=== PATIENT | male | born 1955 | race Caucasian/White ===

== ENCOUNTER 2024-10-23 09:02 | Outpatient (REF) | payer OTHER, MEDICARE, SELFPAY | END 2024-10-23 09:03 | disposition home or self-care (01) | LOC: HO.SH 09:02 | PROVIDERS: PCP Internal Medicine; Visit Provider Internal Medicine | DX: Z01.118 Encounter for examination of ears and hearing with other abnormal findings (principal); H90.3 Sensorineural hearing loss, bilateral | CPT/HCPCS: 92557 ==

== ENCOUNTER 2025-01-15 10:03 | Outpatient (REF) | payer SELFPAY ==
--- NOTE | 2025-01-15 10:59 | MHC.AU.MED ---
Medical Clearance for Hearing Instrumentation Date: 01/15/25 Patient Name: Fahad Elizabeth Date of : 1955 Primary Care Provider: Referring Provider: Loren Sanz MD We have seen your patient on 01/15/25 and have determined that they are a candidate for amplification (See accompanying report). Specifically, they would benefit from: Hearing aid use in both ears There is a statute that addresses Medical Evaluation Requirements prior to fitting a patient with a hearing aid. According to [place] statute 265 CMR:6.03(1), (a) General. Except as provided in 265 CMR 6.03(1)(b), a hearing therapy director shall not sell a hearing aid unless the prospective user has presented to the hearing therapy director a written statement signed by a licensed physician that states that the patient's hearing loss has been medically evaluated and the patient may be considered a candidate for a hearing aid. The medical evaluation must have taken place within the preceding six months. Please note: Due to the [place] Statute referenced above, we cannot accept a signature other than that of a licensed physician. REEL REPAIRER and PA signatures cannot be accepted. I am in agreement with the above recommendation. There is no medical contraindication for hearing instrumentation. Physician Signature Date Physician Name (Printed)
--- OUTSIDE RECORDS SUMMARY | 2025-01-15 11:16 | XMS_ITS | Encounter Summary ---
Author Organization [facility] Address [address] [place] [address] Care Team Providers Care Metal Bumper Name Role Phone Loren Sanz MD Primary Care Provider [phone] Reason for Visit * Reason Comments Hypertension Diabetes Fsbs 162 Encounter Details Date Type Department Care Team (Late st Contact Info) Description 12/16/2024 3:45 PM EST Office Visit Adult Medicine [facility] [address] [place] [address] Loren Sanz MD [address] [place] [address] Type 2 diabetes mellitus with diabetic microalbuminuria, without long-term current use of insulin ([facility]) (Primary Dx); Primary hypertension; Hypercholesterolemia Social History Tobacco Use Types Packs/Day Years Used Date Smoking Tobacco: Every Day Cigarettes Smokeless Tobacco: Never Tobacco Cessation:Ready to Q uit: Not Asked; Counseling Given: Not Answered Alcohol Use Standard Drinks/Week Comments No 0 (1 standard drink = 0.6 oz pur e alcohol) Housing Instability Answer Date Recorde d Are you worried that in the next 2 months you may not have stable housing? No 2024 Food Access & Nutrition Answer Date Rec orded Do you have access to a vari ety of food including fruits and vegetables? Yes 2024 Access to Healthcare Answer Date Record ed Within the last 3 months, ho w many times did you visit the emergency department for your medical care? 0 2024 Health Literacy Answer Date Recorded How often do you need to hav e someone help you when you read instructions, pamphlets, or other written material from your doctor or pharmacy? Never 2024 Caregiver: How often do you need to have someone help you when you read instructions, pamphlets, or other written material from your doctor or pharmacy? Not on file 2024 Financial Risk Answer Date Recorded How hard is it for you to pa y for the very basics like food, housing, medical care, and air conditioning / heating? Not asked 2024 Transportation Answer Date Recorded Has the lack of transportati on kept you from meetings, work, or from getting things needed for daily living? No Has the lack of transportati on kept you from medical appointments or from getting medications? No 2024 Social Isolation Answer Date Recorded How often do you feel lonely or isolated from those around you? Sometimes 2024 Food Risk Answer Date Recorded Within the past 12 months we worried whether our food would run out before we got money to buy more. Not asked 2024 Within the past 12 months th e food we bought just didn't last and we didn't have money to get more. Not asked 2024 Dependent Care Answer Date Recorded Do you need help finding or paying for care for your loved ones. For example, director of early childhood or elderly care for an older adult? No 2024 Education Answer Date Recorded Do you think completing more education or training, like finishing a GED, going to college, or learning a trade, would be helpful for you? No 2024 Employment and Income Answer Date Recor ded During the last four weeks, have you been actively looking for work? No 2024 Living Situation Answer Date Recorded What is your living situation? 0 2024 Sex and Gender Information Value Date Recorded Sex Assigned at Male 01/05/2025 8:54 AM EST Legal Sex Male 9:30 PM EST Gender Identity Male 01/05/2025 8:54 AM EST Sexual Orientation Not on file documented as of this encounter Last Filed Vital Signs Vital Sign Reading Time Taken Comments Blood Pressure 110/62 12/16/2024 3:37 PM EST Pulse 89 12/16/2024 3:37 PM EST Temperature 35.9 ??C (96.7 ??F) 12/16/2024 3:37 PM ES T Respiratory Rate 16 12/16/2024 3:37 PM EST Oxygen Saturation 97% 12/16/2024 3:37 PM EST Inhaled Oxygen Concentration - - Weight 89.4 kg (197 lb 3.2 oz) 12/16/2024 3:37 P M EST Height 182.9 cm (6') 12/16/2024 3:37 PM EST Body Mass Index 26.75 12/16/2024 3:37 PM EST documented in this encounter Ordered Prescriptions Prescription Sig Dispense Quantity Refills Last Filled Start Date End Date valsartan (DIOVAN) 40 mg tablet Take 1 tablet (40 mg total) by mouth 1 (one) time each day. 90 tablet 1 12/16/2024 glipiZIDE (GLUCOTROL) 10 mg tablet Take 1 tablet (10 mg total) by mouth 1 (one) time each day. 90 each 1 12/16/2024 documented in this encounter Progress Notes * Loren Sanz MD - 12/16/2024 3:45 PM EST Chief Complaint: Chief Complaint Patient presents with Hypertension Diabetes Fsbs 162 IDENTIFIER: Fahad Elizabeth is a 69 y.o. old male HPI He comes for evaluation with hypertension, elevated cholesterol, diabetes with proteinuria. He notes that he is now on Medicare but does not have a prescription plan, he cannot afford the diabetes drugs and notes that Trulicity was $800 a month. He is continuing on glipizide, fasting sugars morningwas 162. He is continuing as well and Lipitor for his cholesterol, blood pressure control with hydrochlorothiazide and valsartan. He does have the albuterol inhaler that he uses if needed. He has nothad any markedly elevated sugars or hypoglycemic episodes ROS: General: No malaise, significant weight loss or fever Respiratory: No cough, wheezing or shortness of breath Cardiovascular: No chest pain, palpitations, no orthopnea Endo no polyuria or polydipsia Past Medical History: Patient Active Problem List Diagnosis Date Noted AMD (age-related macular degeneration), bilateral 02/19/2024 Lumbar degenerative disc disease 09/17/2019 Prostatism 10/23/2017 Overweight (BMI 25.0-29.9) 01/12/2013 DM (diabetes mellitus), type 2 with peripheral vascular complications ([facility]) 12/25/2010 Diverticulosis of colon without hemorrhage 06/10/2009 Erectile dysfunction 10/17/2007 Cervicalgia 07/02/2006 Microalbuminuria 05/03/2006 Type II diabetes mellitus with renal manifestations ([facility]) 10/25/2005 Hematuria 10/06/2005 Hypercholesterolemia 10/06/2005 Hypertension 10/06/2005 Surgical History: Past Surgical History: Procedure Laterality Date CHOLECYSTECTOMY COLONOSCOPY 03/11/2006 Dr. Mcdaniel, [facility]. 3 polyps, 2 hyperplastic, one tubular adenoma. COLONOSCOPY 06/10/2009 2 polyps: one tubular adenoma(right colon); one hyperplastic(rectum). COLONOSCOPY 09/21/2014 2 polyps in the proximal TC near the HF: sessile serrated adenomas x 2. COLONOSCOPY 12/06/2016 small LRA x 2. COLONOSCOPY 03/2022 VASECTOMY Family History: Family History Problem Relation Name Age of Onset Lung cancer Mother 61.00 Heart attack Father 46.00 Coronary artery disease Sister 61.00 diabetes, CHF (10% EF), cirrhosis w/ascites (+EtOH), cataract, glaucoma Diabetes Sister sudden (age 60) Heart attack Brother 48.00 Coronary artery disease Brother 48.00 s/p triple bypass, diabetes w/ bilateral leg amputations No Known Problems Maternal Grandmother No Known Problems Maternal Grandfather Heart attack Paternal Grandmother 70.00 coronary occlusion Other (Other: oral cancer) Paternal Grandfather 70.00 Social History: Social History Tobacco Use Smoking status: Every Day Current packs/day: 0.50 Types: Cigarettes Smokeless tobacco: Never Substance Use Topics Alcohol use: No Allergies: Amoxicillin, Lisinopril, Metformin, Penicillins, and Tamsulosin hcl Medications: Outpatient Medications Marked as Taking for the 12/16/24 encounter (Office Visit) with Loren Sanz MD Medication Sig Dispense Refill albuterol HFA (PROAIR HFA ; PROVENTIL HFA ; VENTOLIN HFA) 90 mcg/actuation inhaler Inhale 2 puffs by mouth every 4 (four) hours if needed for wheezing or shortness of breath. 1 each 0 aspirin 81 mg EC tablet 1 TABLET DAILY atorvastatin (LIPITOR) 40 mg tablet Take 1 tablet (40 mg total) by mouth at bedtime. 90 tablet 0 blood sugar diagnostic (FreeStyle Lite Strips) test strip TO MEASURE FASTING BLOOD GLUCOSE EVERY MORNING 100 strip 1 dulaglutide (TRULICITY) 3 mg/0.5 mL pen injector injection Inject 0.5 mL (3 mg total) under the skin every 7 (seven) days. 6 mL 0 FREESTYLE LANCETS [facility] [place] Use to check blood sugar twice a day glipiZIDE (GLUCOTROL) 10 mg tablet Take 1 tablet (10 mg total) by mouth 1 (one) time each day. 90 each 1 hydroCHLOROthiazide (MICROZIDE) 12.5 mg capsule Take 1 capsule (12.5 mg total) by mouth at bedtime.90 capsule 0 sildenafiL (VIAGRA) 50 mg tablet TAKE ONE TABLET BY MOUTH ONE HOUR PRIOR TO NEED valsartan (DIOVAN) 40 mg tablet Take 1 tablet (40 mg total) by mouth 1 (one) time each day. 90 tablet 1 [DISCONTINUED] dulaglutide (Trulicity) 1.5 mg/0.5 mL pen injector injection Inject 0.5 mL (1.5 mg total) under the skin 1 (one) time per week. 6 mL 1 [DISCONTINUED] glipiZIDE (GLUCOTROL) 10 mg tablet 1 tab po bid [DISCONTINUED] valsartan (DIOVAN) 40 mg tablet 1 tab po qhs Medication Discontinued/Reordered: Medications Discontinued During This Encounter Medication Reason dulaglutide (Trulicity) 1.5 mg/0.5 mL pen injector injection glipiZIDE (GLUCOTROL) 10 mg tablet Reorder valsartan (DIOVAN) 40 mg tablet Reorder Vitals: Blood pressure 110/62, pulse 89, temperature 35.9 ??C (96.7 ??F), temperature source Temporal, resp. rate 16, height 1.829 m (72 ), weight 89.4 kg (197 lb 3.2 oz), SpO2 97%. Body mass index is 26.75 kg/m??.Plan is deferred because the patient is aged 65 or older and a weight gain/reduction plan would complicate other health conditions Physical Exam: General: patient is in no acute distress. Neck supple without adenopathy, no thyromegaly. Lungs clear with auscultation. Heart: regular S1S2 without murmur, rub or gallop. Extremities without cyanosis, clubbing or edema. Labs: Lab Results Component Value Date HGBA1C 7.9 (H) 10/30/2024 Impression: 1. Type 2 diabetes mellitus with diabetic microalbuminuria, without long-term current use of insulin ([facility]) 2. Primary hypertension 3. Hypercholesterolemia Assessment and Plan: He will be looking into prescription programs and we discussed a number of different diabetic drugsthat he could use to supplement glipizide. He is allergic to metformin and unable to take it. He istrying to find a medication he can afford. In the meantime we will continue the valsartan and hydroc hlorothiazide for his blood pressure as well as Lipitor for the cholesterol. He will be returning in 3 months for repeat evaluation with repeat glycohemoglobin prior to the visit. Continue to work kingsley low sugar diet and weight control as well. We did the possibility of using NPH insulin as well asan inexpensive option for diabetes control. Myself and my colleagues have maintained a long-term, longitudinal relationship with this patient, overseeing care of chronic conditions including diabetes, hypertension, elevated cholesterol. This care relationship has significantly influenced my decision making and treatment plans during today's encounter. documented in this encounter Plan of Treatment Upcoming Encounters Date Type Department Care Team (Late st Contact Info) Description 03/15/2025 3:30 PM EDT Office Visit Adult Medicine [address] [address] Lexii Hugo PA [address] [place] [address] Scheduled Orders Name Type Priority Associated Diagnoses Orde r Schedule Hemoglobin A1c Lab Routine Type 2 diabetes mellitus with diabetic microalbuminuria, without long-term current use of insulin ([facility]) Expected: 03/15/2025, Expires: 12/16/2025 documented as of this encounter Visit Diagnoses Diagnosis Type 2 diabetes mellitus with diabetic microalbuminuria, without long-term current use of insulin ([facility])- Primary Primary hypertension Unspecified essential hypertension Hypercholesterolemia Pure hypercholesterolemia documented in this encounter Discontinued Medications Medication Sig Discontinue Reason Start Date End Da te dulaglutide (Trulicity) 1.5 mg/0.5 mL pen injector injection Inject 0.5 mL (1.5 mg total) under the skin 1 (one) time per week. 10/14/2024 12/16/2024 glipiZIDE (GLUCOTROL) 10 mg tablet 1 tab po bid Reorder 04/13/2024 12/16/2024 valsartan (DIOVAN) 40 mg tablet 1 tab po qhs Reorder 04/13/2024 12/16/2024 documented as of this encounter Additional Health Concerns Assessment Noted Time PHQ-9 Depression Total Score: 0 12/09/19 25 12:42 PM EST documented as of this encounter Care Teams Metal Bumper Relationship Specialty Start Date End Date Loren Sanz MD [address] [place] [address] PCP - General 05/04/1991 documented as of this encounter
--- OUTSIDE RECORDS SUMMARY | 2025-01-15 11:16 | XMS_ITS | Encounter Summary ---
Author Organization [facility] Address [address] [place] [address] Care Team Providers Care Inventory Assistant Name Role Phone Loren Sanz MD Primary Care Provider [phone] Reason for Referral * Imaging (Routine) - Closed Specialty Diagnoses / Procedures Referred By Contac t Referred To Contact Radiology Diagnoses Encounter for screening for malignant neoplasm of respiratory organs Nicotine dependence, cigarettes, uncomplicated Procedures CT Lung Screening Ludivina Presley MD [address] [address] Phone: tel: fax: [address] [address] Phone: tel: Referral ID Status Reason Start Date Expiration Date Visits Re quested Visits Authorized [id number] Closed 12/03/2024 12/03/2025 1 1 Reason for Visit * Imaging (Routine) - Closed Specialty Diagnoses / Procedures Referred By Contac t Referred To Contact Radiology Diagnoses Encounter for screening for malignant neoplasm of respiratory organs Nicotine dependence, cigarettes, uncomplicated Procedures CT Lung Screening Ludivina Presley MD [address] [address] Phone: tel: fax: [address] [address] Phone: tel: Referral ID Status Reason Start Date Expiration Date Visits Re quested Visits Authorized [id number] Closed 12/03/2024 12/03/2025 1 1 Encounter Details Date Type Department Care Team (Latest Contact Info) Description 01/06/2025 3:38 PM EST - 01/06/2025 11:59 PM EST Hospital Encounter [facility] CT Scan [address] [place] [address] Encounter for screening for malignant neoplasm of respiratory organs; Nicotine dependence, cigarettes, uncomplicated Discharge Disposition: Home or Self Care Social History Tobacco Use Types Packs/Day Years Used Date Smoking Tobacco: Every Day Cigarettes Smokeless Tobacco: Never Alcohol Use Standard Drinks/Week Comments No 0 [...] Record ed Within the last 3 months, mickey diaz many times did you visit the emergency [...] care for your loved ones. For example, childcare director or elderly care for an older adult? [...] on file documented as of this encounter Medications at Time of Discharge albuterol HFA (PROAIR HFA ; PROVENTIL HFA ; VENTOLIN HFA) 90 mcg/actuation inhaler Inhale 2 puffs by mouth every 4 (four) hours if needed for wheezing or shortness of breath. 1 each 10/14/2024 aspirin 81 mg EC tablet 1 TABLET DAILY atorvastatin (LIPITOR) 40 mg tablet Take 1 tablet (40 mg total) by mouth at bedtime. 90 tablet 10/19/2024 blood sugar diagnostic (FreeStyle Lite Strips) test strip TO MEASURE FASTING BLOOD GLUCOSE EVERY MORNING 100 strip 1 10/14/2024 dulaglutide (TRULICITY) 3 mg/0.5 mL pen injector injectionIndication s:DM (diabetes mellitus), type 2 with peripheral vascular complications (CMS/HCC),Type 2 diabetes mellitus with diabetic microalbuminuria, without long-term current use of insulin (CMS/[facility]) Inject 0.5 mL (3 mg total) under the skin every 7 (seven) days. 6 mL 11/03/2024 FREESTYLE LANCETS MISC Use to check blood sugar twice a day 04/13/2024 glipiZIDE (GLUCOTROL) 10 mg tablet Take 1 tablet (10 mg total) by mouth 1 (one) time each day. 90 each 1 12/16/2024 hydroCHLOROthiazide (MICROZIDE) 12.5 mg capsule Take 1 capsule (12.5 mg total) by mouth at bedtime. 90 capsule 10/19/2024 sildenafiL (VIAGRA) 50 mg tablet TAKE ONE TABLET BY MOUTH ONE HOUR PRIOR TO NEED 06/17/2023 valsartan (DIOVAN) 40 mg tablet Take 1 tablet (40 mg total) by mouth 1 (one) time each day. 90 tablet 1 12/16/2024 documented as of this encounter Discharge Disposition Disposition Code Departure Means Destination Home or Self Care documented in this encounter Plan of Treatment Upcoming Encounters Date Type Department Care Team (Late st Contact Info) Description 03/15/2025 3:30 PM EDT Office Visit Adult Medicine [facility] [address] [place] [address] Lexii Hugo PA [address] [place] [address] documented as of this encounter Procedures Procedure Name Priority Date/Time Associated Diagnosis Comments CT LUNG SCREENING Routine 01/06/2025 3:5 5 PM EST Encounter for screening for malignant neoplasm of respiratory organs Nicotine dependence, cigarettes, uncomplicated documented in this encounter Results * CT Lung Screening (01/06/2025 3:55 PM EST) Anatomical Region Laterality Modality Chest Computed Tomogra phy 01/11/2025 9:53 AM EDT Impressions 01/11/2025 9:57 AM EDT No suspicious pulmonary nodules. ??Lung RADS 2-benign. ??Recommend continued screening with low-dose chest CT in 12 months.. -------- FINAL REPORT -------- Dictated By: DEDE DAVISON Dictated Date: 01/11/2025 09:53 ET Assigned Physician: DEDE DAVISON Reviewed and Electronically Signed By: DEDE DAVISON Signed Date: 01/11/2025 09:57 ET Workstation ID: [id number] Transcribed By: Self Edit Transcribed Date: 01/11/2025 09:53 ET Narrative 01/11/2025 9:57 AM EDT PROCEDURE: Chest CT INDICATION: Lung cancer screening, current smoker, 26 pack smoking history TECHNIQUE: Chest CT without contrast. Multi planar reformats were created and interpreted. The examination was performed utilizing dose reduction techniques. ??Total DLP 176 COMPARISON: ??01/01/2024 FINDINGS: LUNGS/PLEURA: Central airways are patent. ??Mild emphysema with chronic bronchitis. ??Elevated right diaphragm with right basilar atelectasis. ??Sub-3 mm centrilobular nodularity seen in the left lower lobe, likely inflammatory. ??Scattered calcified granulomas throughout the lungs. ??3 mm subpleural nodule in the right lower lobe is stable No new or suspicious pulmonary nodules. ??No pleural effusion or pneumothorax. MEDIASTINUM: Thyroid gland is normal. ??No mediastinal or hilar lymphadenopathy. ??Esophagus is normal. ??Severe coronary artery calcifications. ??Cardiac chambers are normal in size. ??No pericardial effusion. ??Aortic valvular calcifications. CHEST WALL: No axillary lymphadenopathy or superficial hematoma. UPPER ABDOMEN:The visualized portions of the upper abdomen are unremarkable. BONES: No acute fracture. Scattered degenerative changes seen throughout the bones. Procedure Note Dede Davison MD - 01/11/2025 PROCEDURE: Chest CT INDICATION: Lung cancer screening, current smoker, 26 pack smokinghistory TECHNIQUE: Chest CT without contrast. Multi planar reformats were createdand interpreted. The examination was performed utilizing dose reductiontechniques. Total DLP 176 COMPARISON: 01/01/2024 FINDINGS: LUNGS/PLEURA: Central airways are patent. Mild emphysema with chronicbronchitis. Elevated right diaphragm with right basilar atelectasis.Sub-3 mm centrilobular nodularity seen in the left lower lobe, likelyinflammatory. Scattered calcified granulomas throughout the lungs. 3 mmsubpleural nodule in the right lower lobe is stable No new or suspiciouspulmonary nodules. No pleural effusion or pneumothorax. MEDIASTINUM: Thyroid gland is normal. No mediastinal or hilarlymphadenopathy. Esophagus is normal. Severe coronary arterycalcifications. Cardiac chambers are normal in size. No pericardialeffusion. Aortic valvular calcifications. CHEST WALL: No axillary lymphadenopathy or superficial hematoma. UPPER ABDOMEN:The visualized portions of the upper abdomen areunremarkable. BONES: No acute fracture. Scattered degenerative changes seen throughoutthe bones. IMPRESSION: No suspicious pulmonary nodules. Lung RADS 2-benign. Recommend continuedscreening with low-dose chest CT in 12 months.. -------- FINAL REPORT -------- Dictated By: DEDE DAVISON Dictated Date: 01/11/2025 09:53 ET Assigned Physician: DEDE DAVISON Reviewed and Electronically Signed By: DEDE DAVISON Signed Date: 01/11/2025 09:57 ET Workstation ID: [id number] Transcribed By: Self Edit Transcribed Date: 01/11/2025 09:53 ET us Ludivina Presley MD IMG CT PROCEDURES Final Result documented in this encounter Visit Diagnoses Diagnosis Encounter for screening for malignant neoplasm of respiratory organs Nicotine dependence, cigarettes, uncomplicated documented in this encounter Additional Health Concerns Assessment Noted Time PHQ-9 Depression Total Score: 0 12/09/19 25 12:42 PM EST documented as of this encounter Care Teams Inventory Assistant Relationship Specialty Start Date End Date Loren Sanz MD [address] [place] [address] PCP - General 05/04/1991 documented as of this encounter
--- OUTSIDE RECORDS SUMMARY | 2025-01-15 11:16 | XMS_ITS | Clinical Summary ---
Author Organization [address] Address [address] [place] [phone] Phone Care Team Providers Care Student Services Coordinator Name Role Phone Loren Sanz MD Primary Care Provider [phone] Allergies Active Allergy Reactions Criticality Noted Date Comments Amoxicillin 01/12/2013 Lip swelling, rash Lisinopril 01/24/2011 Lip swelling, rash Metformin 01/24/2011 Lip swelling, rash Penicillins 06/23/2020 Tamsulosin Hcl 01/12/2013 Face swelling, lightheaded Medications aspirin 81 mg EC tablet 1 TABLET DAILY Active FREESTYLE LANCETS MISC Use to check blood sugar twice a day 4 Active sildenafiL (VIAGRA) 50 mg tablet TAKE ONE TABLET BY MOUTH ONE HOUR PRIOR TO NEED 3 Active blood sugar diagnostic (FreeStyle Lite Strips) test strip TO MEASURE FASTING BLOOD GLUCOSE EVERY MORNING 100 strip 1 4 Active albuterol HFA (PROAIR HFA ; PROVENTIL HFA ; VENTOLIN HFA) 90 mcg/actuation inhaler Inhale 2 puffs by mouth every 4 (four) hours if needed for wheezing or shortness of breath. 1 each 4 Active atorvastatin (LIPITOR) 40 mg tablet Take 1 tablet (40 mg total) by mouth at bedtime. 90 tablet 4 Active hydroCHLOROthiazid e (MICROZIDE) 12.5 mg capsule Take 1 capsule (12.5 mg total) by mouth at bedtime. 90 capsule 4 Active dulaglutide (TRULICITY) 3 mg/0.5 mL pen injector injectionIndicatio ns:DM (diabetes mellitus), type 2 with peripheral vascular complications (CMS/HCC),Type 2 diabetes mellitus with diabetic microalbuminuria, without long-term current use of insulin (CMS/HCC) Inject 0.5 mL (3 mg total) under the skin every 7 (seven) days. 6 mL 4 Active glipiZIDE (GLUCOTROL) 10 mg tablet Take 1 tablet (10 mg total) by mouth 1 (one) time each day. 90 each 1 5 Active valsartan (DIOVAN) 40 mg tablet Take 1 tablet (40 mg total) by mouth 1 (one) time each day. 90 tablet 1 5 Active Active Problems Problem Noted Date Diagnosed Date AMD (age-related macular degeneration), bilatera l 02/19/2024 Overview (10/06/2024): Dr. Lee Lumbar degenerative disc disease 09/17/2019 Prostatism 10/23/2017 Overweight (BMI 25.0-29.9) 01/12/2013 DM (diabetes mellitus), type 2 with peripheral vascular complications 12/25/2010 Diverticulosis of colon without hemorrhage 06/10 Overview (10/06/2024): Incidental finding at colonoscopy 06/10/2009. Erectile dysfunction 10/17/2007 Cervicalgia 07/02/2006 Microalbuminuria 05/03/2006 Type II diabetes mellitus with renal manifestati ons 10/25/2005 Overview (12/13/2024): Hematuria 10/06/2005 Overview (10/06/2024): negative evaluation IMO update Hypercholesterolemia 10/06/2005 Hypertension 10/06/2005 Encounters Date Type Department Care Team Description 01/06/2025 3:38 PM EST - 01/06/2025 11:59 PM EST Hospital Encounter [facility] CT Scan [address] [place] [address] Encounter for screening for malignant neoplasm of respiratory organs; Nicotine dependence, cigarettes, uncomplicated Discharge Disposition: Home or Self Care 12/16/2024 3:45 PM EST Office Visit Adult Medicine [facility] [address] [place] [address] Loren Sanz MD Type 2 diabetes mellitus with diabetic microalbuminuria, without long-term current use of insulin ([facility]) (Primary Dx); Primary hypertension; Hypercholesterolemia 12/16/2024 Telephone Lung Screening Program - [address] [place] [address] Faina Corrales [place] Appointment (1st notification) from Last 3 Months Immunizations Name Administration Dates Next Due Influenza trivalent, 0.5mL ( Fluad) 65yo and older 08/13/2024,08/25/2023,09/17/2022,08/14 Influenza trivalent, 0.5mL, preservative free (Fluarix; FluLaval; Fluzone) ages 6mo and older (Afluria) 3 years and older 08/21/2020,08/22/2019,09/02/2016,08/23,07/15/2013,07/14/2012,07/30/2011 ,07/30/2007 Influenza, Unspecified 08/19/2018,09/02/2016,11/2013 Pneumococcal conjugate 13 va lent (Prevnar 13, PCV13) 2mo and older 04/12/2021 Pneumococcal conjugate 20 va lent (Prevnar 20, PCV 20) 2mo and older 10/03/2024 Pneumococcal polysaccharide 23 valent (Pneumovax 23) 2yo and older 09/17/2022,07/30/2007 Td Tetanus diptheria (Tdvax) 7yo and older 02/23/2019,03/04/1999 Tdap Tetanus diptheria acell ular pertussis (Boostrix; Adacel) 7yo and older 12/28/2008 Zoster Live 06/13/2016 Surgical History Surgery Date Site/Laterality Comments CHOLECYSTECTOMY VASECTOMY COLONOSCOPY 03/11/2006 Dr. Mcdaniel, [facility]. 3 polyps, 2 hyperplastic, one tubular adenoma. COLONOSCOPY 06/10/2009 2 polyps: one tubular adenoma(right colon); one hyperplastic(rectum). COLONOSCOPY 09/21/2014 2 polyps in the proximal TC near the HF: sessile serrated adenomas x 2. COLONOSCOPY 12/06/2016 small LRA x 2. COLONOSCOPY 03/2022 Medical History Medical History Date Comments Pure hypercholesterolemia 10/06/2005 Hematuria 10/06/2005 negative evaluat ion Personal history of colonic polyps 12/11/2006 CN 03/11/2006 Dr. Mcdaniel, [facility], 3 polyps, 1 tubular adenoma, 2 hyperplastic. Diverticulosis of colon (wit hout mention of hemorrhage) 06/10/2009 Essential hypertension, benign 10/06/2005 Amblyopia, unspecified right DM (diabetes mellitus), type 2 with peripheral vascular complications (CMS/HCC) 12/25/2010 Obese 01/12/2013 Family History Medical History Relation Name Comments Heart attack Brother 1 Coronary artery disease Brother 2 s/p triple bypass, diabetes w/ bilateral leg amputations Heart attack Father No Known Problems Maternal Grandfather No Known Problems Maternal Grandmother Lung cancer Mother Other: oral cancer Paternal Grandfather Heart attack Paternal Grandmother weaver ry occlusion Coronary artery disease Sister 1 diab etes, CHF (10% EF), cirrhosis w/ascites (+EtOH), cataract, glaucoma Diabetes Sister 2 sudden (a ge 60) Relation Name Status Comments Brother 1 Brother 2 Alive Father (Age 46) Maternal Grandfather Maternal Grandmother Mother (Age 63) Paternal Grandfather Paternal Grandmother Sister 1 Alive Sister 2 Social History Tobacco Use Types Packs/Day Years [...] ed Within the last 3 months, ho joe many times did you visit the emergency [...] care for your loved ones. For example, child abuse worker or elderly care for an older adult? [...] AM EST Sexual Orientation Not on file Obstetrics History Last Filed Vital Signs Vital Sign Reading [...] Mass Index 26.75 12/16/2024 3:37 PM EST Plan of Treatment Upcoming Encounters Date Type Department Care Team (Late st Contact Info) Description 03/15/2025 3:30 PM EDT Office Visit Adult Medicine [facility] [address] [place] [address] Lexii Hugo PA [address] [place] [address] Health Maintenance Due Date Last Done Comments Hepatitis A Vaccines (1 of 2 - Risk 2-dose series) 1974 RSV Immunization Patients 60+ Years Old (1 - Risk 60-74 years 1-dose series) 2015 Zoster Vaccines (2 of 3) 08/08/2016 06/13/2016 Abdominal Aortic Aneurysm (AAA) Screen 10/13/2022 Medicare Annual Wellness Visit 10/13/2022 COVID-19 Vaccine ( season) 2024 Diabetes: Annual Foot Exam 01/15/2025 01/16/2024 Diabetes: Annual Retina Eye Exam 02/16/2025 02/17/2024 Diabetes: Annual GFR (Glomerular Filtration Rate) 04/08/2025 04/08/2024, 04/08/2024 Hypertension/CHF/CAD Annual BMP Blood Test 04/08/2025 04/08/2024, 04/08/2024 Diabetes: Blood Sugar Control Test (HGBA1C) 04/30/2025 10/30/2024, 08/10/2024, 08/10/2024, Additional history exists Diabetes: Annual Urine Albumin-Creatinine Ratio (uACR) 10/30/2025 10/30/2024, 04/08/2024 Depression Screening 2025 2024 Social Influencers of Health Screening 2025 2024 Falls Risk Assessment 12/16/2025 12/16/2024 Lung Cancer Screening (Low Dose CT) 01/06/2026 01/06/2025, 01/02/2024, 01/02/2023 Colorectal Cancer Screening: Colonoscopy 03/28/2027 03/28/2022 DTaP,Tdap,and Td Vaccines (4 - Td or Tdap) 02/23/2029 02/23/2019, 12/28/2008, 03/04/1999 Cholesterol Screening (Lipid Panel) 04/08/2029 04/08/2024, 04/08/2024 Hepatitis C Screening Completed 07/15/2013 Influenza Vaccine Completed 08/13/2024, , 09/17/2022, Additional history exists Pneumococcal Vaccine: 50+ Years Completed 10/03/2024, 09/17/2022, 04/12/2021, Additional history exists HIB Vaccines Aged Out No longer eligi ble based on patient's age to complete this topic HPV Vaccines Aged Out No longer eligi ble based on patient's age to complete this topic Hepatitis B Vaccines Aged Out No long er eligible based on patient's age to complete this topic IPV Vaccines Aged Out No longer eligi ble based on patient's age to complete this topic MMR Vaccines Aged Out No longer eligi ble based on patient's age to complete this topic Meningococcal ACWY Vaccine Aged Out N o longer eligible based on patient's age to complete this topic Meningococcal B Vacine Aged Out No lo nger eligible based on patient's age to complete this topic RSV Immunization Patients Under 20 months Aged Out No longer eligible based on patient's age to complete this topic Varicella Vaccines Aged Out No longer eligible based on patient's age to complete this topic Procedures Procedure Name Priority Date/Time Associated Diagnosis Comments CT LUNG SCREENING Routine 01/06/2025 3:5 5 PM EST Encounter for screening for malignant neoplasm of respiratory organs Nicotine dependence, cigarettes, uncomplicated CBC WITH AUTO DIFFERENTIAL Routine 10/30/2024 7:45 AM EST AMD (age-related macular degeneration), bilateral Hypertension DM (diabetes mellitus), type 2 with peripheral vascular complications (CMS/HCC) Cervicalgia Erectile dysfunction Overweight (BMI 25.0-29.9) Microalbuminuria Hematuria Hypercholesterolemia PROSTATE SPECIFIC ANTIGEN SCREEN Routine 10/30/2024 7:45 AM EST AMD (age-related macular degeneration), bilateral Hypertension DM (diabetes mellitus), type 2 with peripheral vascular complications (CMS/HCC) Cervicalgia Erectile dysfunction Overweight (BMI 25.0-29.9) Microalbuminuria Hematuria Hypercholesterolemia MICROALBUMIN CREATININE URINE RATIO Routine 10/30/2024 7:45 AM EST AMD (age-related macular degeneration), bilateral Hypertension DM (diabetes mellitus), type 2 with peripheral vascular complications (CMS/HCC) Cervicalgia Erectile dysfunction Overweight (BMI 25.0-29.9) Microalbuminuria Hematuria Hypercholesterolemia CBC AND DIFFERENTIAL Routine 10/30/2024 7:45 AM EST AMD (age-related macular degeneration), bilateral Hypertension DM (diabetes mellitus), type 2 with peripheral vascular complications (CMS/HCC) Cervicalgia Erectile dysfunction Overweight (BMI 25.0-29.9) Microalbuminuria Hematuria Hypercholesterolemia HEMOGLOBIN A1C Routine 10/30/2024 7:45 AM EST AMD (age-related macular degeneration), bilateral Hypertension DM (diabetes mellitus), type 2 with peripheral vascular complications (CMS/HCC) Cervicalgia Erectile dysfunction Overweight (BMI 25.0-29.9) Microalbuminuria Hematuria Hypercholesterolemia ANNUAL BMP BLOOD TEST Routine 04/08/2024 LIPID PANEL Routine 04/08/2024 DIABETES EYE EXAM Routine 02/17/2024 DIABETES FOOT EXAM Routine 01/16/2024 COLONOSCOPY Routine 03/28/2022 HEPATITIS C SCREENING Routine 07/15/2013 from Last 3 Months or Most Recently Relevant to Health Maintenance Results * CT Lung Screening (01/06/2025 3:55 [...] Signed Date: 01/11/2025 09:57 ET Workstation ID: [id number] Transcribed By: Self Edit Transcribed Date: 01/11/2025 [...] Signed Date: 01/11/2025 09:57 ET Workstation ID: [id number] Transcribed By: Self Edit Transcribed Date: 01/11/2025 09:53 ET Ludivina Presley MD IMG CT PROCEDURES Final Result * Prostate specific antigen screen (10/30/2024 7:45 AM EST) PSA 1.59 0.00 - 4.00 ng/mL LAB CHEMISTRY METHOD 10/30/2024 10:18 AM EST [facility] Blood Venous blood specimen / Unknown Venipuncture / Unknown 10/30/2024 7:45 AM EST 10/30/2024 7:45 AM EST Narrative [facility] - 10/30/2024 10:18 AM EST The Siemens Advia Centaur Chemiluminescent Immunoassay is used. Results obtained with different assay methods or kits cannot be used interchangeably. Results cannot be interpreted as absolute evidence of the presence or absence of malignant disease. us Lexii TAVERAS LAB BLOOD ORDERABLES Final Re sult [facility] [address] [place] [address], * (ABNORMAL) CBC auto differential (10/30/2024 7:45 AM EST) WBC 7.1 4.8 - 10.8 K/mcL LAB HEMETOLOGY METHOD 10/30/2024 10:14 AM EST [facility] RBC 5.40 4.50 - 5.50 M/mcL LAB HEMETOLOGY METHOD 10/30/2024 10:14 AM EST [facility] Hemoglobin 15.5 13.5 - 17.5 g/dL LAB HEMETOLOGY METHOD 10/30/2024 10:14 AM [facility] Hematocrit 48.9 42.0 - 54.0 % LAB HEMETOLOGY METHOD 10/30/2024 10:14 AM EST [facility] MCV 90.4 79.0 - 98.0 FL LAB HEMETOLOGY METHOD 10/30/2024 10:14 AM EST [facility] MCH 28.7 27.0 - 32.0 pcg LAB HEMETOLOGY METHOD 10/30/2024 10:14 AM [facility] MCHC 31.7(L) 32.0 - 37.0 g/dL LAB HEMETOLOGY METHOD 10/30/2024 10:14 AM EST [facility] RDW 13.7 11.0 - 15.0 % LAB HEMETOLOGY METHOD 10/30/2024 10:14 AM [facility] Platelets 310 130 - 400 K/mcL LAB HEMETOLOGY METHOD 10/30/2024 10:14 AM [facility] MPV 11.0 7.0 - 11.0 FL LAB HEMETOLOGY METHOD 10/30/2024 10:14 AM [facility] NRBC 0.0 <1.0 % LAB HEMETOLOGY METHOD 10/30/2024 10:14 AM [facility] NRBC Absolute 0.00 <0.10 K/mcL LAB HEMETOLOGY METHOD 10/30/2024 10:14 AM [facility] Neutrophils Relative 64.6 % LAB HEMETOLOGY METHOD 10/30/2024 10:14 AM [facility] Lymphocytes Relative 25.1 % LAB HEMETOLOGY METHOD 10/30/2024 10:14 AM [facility] Monocytes Relative 5.7 % LAB HEMETOLOGY METHOD 10/30/2024 10:14 AM [facility] Eosinophils Relative 3.5 % LAB HEMETOLOGY METHOD 10/30/2024 10:14 AM [facility] Basophils Relative 0.8 % LAB HEMETOLOGY METHOD 10/30/2024 10:14 AM [facility] Immature Granulocytes Relative 0.3 % LAB HEMETOLOGY METHOD 10/30/2024 10:14 AM [facility] Neutrophils Absolute 4.61 1.50 - 7.00 K/mcL LAB HEMETOLOGY METHOD 10/30/2024 10:14 AM [facility] Lymphocytes Absolute 1.79 1.00 - 5.00 K/mcL LAB HEMETOLOGY METHOD 10/30/2024 10:14 AM [facility] Monocytes Absolute 0.41 0.20 - 1.00 K/mcL LAB HEMETOLOGY METHOD 10/30/2024 10:14 AM [facility] Eosinophils Absolute 0.25 0.00 - 0.50 K/mcL LAB HEMETOLOGY METHOD 10/30/2024 10:14 AM [facility] Basophils Absolute 0.06 0.00 - 0.20 K/mcL LAB HEMETOLOGY METHOD 10/30/2024 10:14 AM [facility] Immature Granulocytes Absolute 0.02 0.00 - 0.03 K/[facility] LAB HEMETOLOGY METHOD 10/30/2024 10:14 AM EST [facility] Blood Venous blood specimen / Unknown Venipuncture / Unknown 10/30/2024 7:45 AM EST 10/30/2024 7:45 AM EST us Lexii TAVERAS LAB BLOOD ORDERABLES Final Re sult [facility] [address] [place] [address], [place] [phone] * (ABNORMAL) Microalbumin creatinine urine ratio (10/30/2024 7:45 AM EST) Creatinine, Urine 222.0 mg/dL LAB CHEMISTRY METHOD 10/30/2024 10:37 AM EST [facility] Microalb, Ur 54.7(H) 0.0 - 29.0 mg/L LAB CHEMISTRY METHOD 10/30/2024 10:37 AM EST [facility] Microalb/Crea t Ratio 25 <30 mg/g creat LAB CHEMISTRY METHOD 10/30/2024 10:37 AM EST [facility] Urine Urine specimen obtained by clean catch procedure / Unknown Non-blood Collection / Unknown 10/30/2024 7:45 AM EST 10/30/2024 7:45 AM EST us Lexii TAVERAS LAB URINE ORDERABLES Final Re sult Performing Organization Address City/[facility]/ZIP Co de Phone Number [facility] [address] [place] [address], [place] [phone] * (ABNORMAL) Hemoglobin A1c (10/30/2024 7:45 AM EST) Hemoglobin A1C 7.9(H) <6.5 % LAB CHEMISTRY METHOD 10/30/2024 12:26 PM EST [facility] Mean Bld Glu Estim. 180 mg/dL LAB CHEMISTRY METHOD 10/30/2024 12:26 PM EST [facility] Blood Venous blood specimen / Unknown Venipuncture / Unknown 10/30/2024 7:45 AM EST 10/30/2024 7:45 AM EST Lexii TAVERAS LAB BLOOD ORDERABLES Final Re sult [facility] [address] [place] [address], [place] [phone] * Annual BMP Blood Test (04/08/2024) [facility] Annual BMP Blood Test abstracted Result [facility] Provider HEALTH MAINTENANCE Final Result * (ABNORMAL) Lipid panel (04/08/2024) [facility] LDL/HDL Ratio 3 0 - 4 Triglycerides 109 0 - 150 mg/dL Cholesterol 120 0 - 200 mg/dL HDL 39(A) >=40 mg/dL LDL Cholesterol 60 0 - 100 mg/dL Blood Venous blood specimen / Unknown Result [facility] Provider LAB BLOOD ORDERABLES Vanita l Result * Diabetes Eye Exam (02/17/2024) [facility] Diabetes: Annual Retina Eye Exam abstracted Result [facility] Provider HEALTH MAINTENANCE Final Result * Diabetes Foot Exam (01/16/2024) [facility] Diabetes: Annual Foot Exam abstracted [facility] Provider HEALTH MAINTENANCE Final Result * Colonoscopy (03/28/2022) [facility] Colonoscopy no interpretation , abstracted Anatomical Region Laterality Modality Other Result [facility] Provider HEALTH MAINTENANCE Final Result * Hepatitis C Screening (07/15/2013) [facility] Hepatitis C Screening abstracted [facility] Provider HEALTH MAINTENANCE Final Result from Last 3 Months or Most Recently Relevant to Health Maintenance Insurance MEDICARE Care Teams Student Services Coordinator Relationship Specialty Start Date End Date Loren Sanz MD [address] [place] [address] PCP - General [birth year]/04/1991
--- OUTSIDE RECORDS SUMMARY | 2025-01-15 11:16 | XMS_ITS | Encounter Summary ---
Author Organization [facility] Address [address] [place] [address] Care Team Providers Care Conductor/Brakeman Name Role Phone Loren Sanz MD Primary Care Provider [phone] Reason for Visit * Reason Onset Date Comments Appointment 12/16/2024 1st notification Encounter Details Date Type Department Care Team ([facility] st Contact Info) Description 12/16/2024 Telephone Lung Screening Program - [address] [address] Faina Corrales [place] Appointment (1st notification) Social History Tobacco Use Types Packs/Day Years [...] care for your loved ones. For example, childrens club attendant or elderly care for an older adult? [...] on file documented as of this encounter Progress Notes * Faina Corrales [place] - 12/16/2024 3:50 PM EST Fahad Elizabeth was contacted by the Lung Cancer Screening Program today to confirm the appointment oftheir Lung Cancer Screening. The patient is currently scheduled to have their screening on Monday January 06, 2025 at 430 PM, at [facility]. Patient confirmed For all screenings scheduled during the week, the patient will check in at Patient Registration on the first floor of the [facility]. For screenings that take place on the weekend or after 5pm, check-in directly in Radiology. The patient was given the Lung Cancer Screening Program phone number, , to contact if they have any additional questions, concerns or need to reschedule. Patients are encouraged to call our office and reschedule if they are exhibiting any cold-like symptoms, have recently been treated for Pneumonia or Influenza (the flu) or have had another CT of their Chest since their last screening. documented in this encounter Plan of Treatment Upcoming Encounters Date Type Department Care Team (Late st Contact Info) Description 03/15/2025 3:30 PM EDT Office Visit Adult Medicine [facility] [address] [place] [address] Lexii Hugo PA [address] [place] [address] documented as of this encounter Visit Diagnoses Not on filedocumented in this encounter Additional Health Concerns Assessment Noted Time PHQ-9 Depression Total Score: 0 12/09/19 25 12:42 PM EST documented as of this encounter Care Teams Conductor/Brakeman Relationship Specialty Start Date End Date Loren Sanz MD [address] [place] [id number] PCP - General 05/04/1991 documented as of this encounter
== END 2025-01-15 10:04 | disposition home or self-care (01) ==
LOC: HO.HAP 10:03
PROVIDERS: Visit Provider Internal Medicine
DX: Z46.1 Encounter for fitting and adjustment of hearing aid (principal); H90.3 Sensorineural hearing loss, bilateral
CPT/HCPCS: 92590; 92591

== ENCOUNTER 2025-01-21 14:30 | Outpatient (REF) | payer SELFPAY ==
--- OUTSIDE RECORDS SUMMARY | 2025-01-21 17:12 | XMS_ITS | Clinical Summary ---
Author Organization [address] Address [address] [place] [phone] Phone Care Team Providers Care Storeroom Supervisor Name Role Phone Loren Sanz MD Primary Care Provider [phone] Allergies Active Allergy Reactions Criticality Noted Date Comments Amoxicillin 01/12/2013 Lip swelling, rash Lisinopril 01/24/2011 Lip swelling, rash Metformin 01/24/2011 Lip swelling, rash Penicillins 06/23/2020 Tamsulosin Hcl 01/12/2013 Face swelling, lightheaded Medications aspirin 81 mg EC tablet 1 TABLET DAILY Active FREESTYLE LANCETS MISC Use to check blood sugar twice a day 04/13/20 24 Active sildenafiL (VIAGRA) 50 mg tablet TAKE ONE TABLET BY MOUTH ONE HOUR PRIOR TO NEED 06/17/20 23 Active blood sugar diagnostic (FreeStyle Lite Strips) test strip TO MEASURE FASTING BLOOD GLUCOSE EVERY MORNING 100 strip 1 10/14/20 24 Active albuterol HFA (PROAIR HFA ; PROVENTIL HFA ; VENTOLIN HFA) 90 mcg/actuation inhaler Inhale 2 puffs by mouth every 4 (four) hours if needed for wheezing or shortness of breath. 1 each 10/14/20 24 Active dulaglutide (TRULICITY) 3 mg/0.5 mL pen injector injectionIndicati ons:DM (diabetes mellitus), type 2 with peripheral vascular complications (CMS/HCC),Type 2 diabetes mellitus with diabetic microalbuminuria, without long-term current use of insulin (CMS/HCC) Inject 0.5 mL (3 mg total) under the skin every 7 (seven) days. 6 mL 11/03/20 24 Active glipiZIDE (GLUCOTROL) 10 mg tablet Take 1 tablet (10 mg total) by mouth 1 (one) time each day. 90 each 1 12/16/19 25 Active valsartan (DIOVAN) 40 mg tablet Take 1 tablet (40 mg total) by mouth 1 (one) time each day. 90 tablet 1 12/16/19 25 Active atorvastatin (LIPITOR) 40 mg tablet Take 1 tablet (40 mg total) by mouth at bedtime. 90 tablet 01/21/20 25 Active hydroCHLOROthiazi de (MICROZIDE) 12.5 mg capsule Take 1 capsule (12.5 mg total) by mouth at bedtime. 90 capsule 01/21/20 25 Active atorvastatin (LIPITOR) 40 mg tablet Take 1 tablet (40 mg total) by mouth at bedtime. 90 tablet 10/19/20 24 025 Discontinued hydroCHLOROthiazi de (MICROZIDE) 12.5 mg capsule Take 1 capsule (12.5 mg total) by mouth at bedtime. 90 capsule 10/19/20 24 025 Discontinued Active Problems Problem Noted Date Diagnosed Date [...] Encounter [facility] CT Scan [address] [place] [address] Encounter for screening for malignant neoplasm of respiratory organs; Nicotine dependence, cigarettes, uncomplicated Discharge Disposition: Home or Self Care 12/16/2024 3:45 PM EST Office Visit Adult Medicine [address] [phone] Loren Sanz MD Type 2 diabetes mellitus with diabetic microalbuminuria, without long-term current use of insulin ([facility]) (Primary Dx); Primary hypertension; Hypercholesterolemia 12/16/2024 Telephone Lung Screening Program - [place] [address] [address] Faina Corrales [place] Appointment (1st [...] colonic polyps 12/11/2006 CN 03/11/2006 Dr. Mcdaniel, [facility], 3 polyps, 1 tubular adenoma, 2 hyperplastic. [...] for your loved ones. For example, child and family therapist or elderly care for an older adult? [...] EDT Office Visit Adult Medicine [facility] [address] [place] [address] Lexii Hugo PA [address] [place] [address] Health Maintenance Due Date Last Done Comments [...] Signed Date: 01/11/2025 09:57 ET Workstation ID: [id number] Transcribed By: Self Edit Transcribed Date: 01/11/2025 [...] Signed Date: 01/11/2025 09:57 ET Workstation ID: [id number] Transcribed By: Self Edit Transcribed Date: 01/11/2025 09:53 ET us Ludivina Presley MD [facility] CT PROCEDURES Final Result * Prostate specific antigen screen (10/30/2024 7:45 AM EST) PSA 1.59 0.00 - 4.00 ng/mL LAB CHEMISTRY METHOD 10/30/2024 10:18 AM EST [facility] Blood Venous blood specimen / Unknown Venipuncture / Unknown 10/30/2024 7:45 AM EST 10/30/2024 7:45 AM EST [facility] LAB - 10/30/2024 10:18 AM EST The Siemens Advia Centaur Chemiluminescent Immunoassay is used. Results obtained with different assay methods or kits cannot be used interchangeably. Results cannot be interpreted as absolute evidence of the presence or absence of malignant disease. us Lexii TAVERAS LAB BLOOD ORDERABLES Final Re sult [facility] [address] [place] [address], * (ABNORMAL) CBC auto differential (10/30/2024 7:45 AM EST) WBC 7.1 4.8 - 10.8 K/mcL LAB HEMETOLOGY METHOD 10/30/2024 10:14 AM [facility] RBC 5.40 4.50 - 5.50 M/mcL LAB HEMETOLOGY METHOD 10/30/2024 10:14 AM [facility] Hemoglobin 15.5 13.5 - 17.5 g/dL LAB HEMETOLOGY METHOD 10/30/2024 10:14 AM [facility] Hematocrit 48.9 42.0 - 54.0 % LAB HEMETOLOGY METHOD 10/30/2024 10:14 AM [facility] MCV 90.4 79.0 - 98.0 FL LAB HEMETOLOGY METHOD 10/30/2024 10:14 AM [facility] MCH 28.7 27.0 - 32.0 pcg LAB HEMETOLOGY METHOD 10/30/2024 10:14 AM [facility] MCHC 31.7(L) 32.0 - 37.0 g/dL LAB HEMETOLOGY METHOD 10/30/2024 10:14 AM [facility] RDW 13.7 11.0 - 15.0 % LAB HEMETOLOGY METHOD 10/30/2024 10:14 AM [facility] Platelets 310 130 - 400 K/mcL LAB HEMETOLOGY METHOD 10/30/2024 10:14 AM [facility] MPV 11.0 7.0 - 11.0 FL LAB HEMETOLOGY METHOD 10/30/2024 10:14 AM [facility] NRBC 0.0 <1.0 % LAB HEMETOLOGY METHOD 10/30/2024 10:14 AM [facility] NRBC Absolute 0.00 <0.10 K/mcL LAB HEMETOLOGY METHOD 10/30/2024 10:14 AM [facility] Neutrophils Relative 64.6 % LAB HEMETOLOGY METHOD 10/30/2024 10:14 AM [facility] Lymphocytes Relative 25.1 % LAB HEMETOLOGY METHOD 10/30/2024 10:14 AM [facility] Monocytes Relative 5.7 % LAB HEMETOLOGY METHOD 10/30/2024 10:14 AM [facility] Eosinophils Relative 3.5 % LAB HEMETOLOGY METHOD 10/30/2024 10:14 AM [facility] Basophils Relative 0.8 % LAB HEMETOLOGY METHOD 10/30/2024 10:14 AM [facility] Immature Granulocytes Relative 0.3 % LAB HEMETOLOGY METHOD 10/30/2024 10:14 AM [facility] Neutrophils Absolute 4.61 1.50 - 7.00 K/mcL LAB HEMETOLOGY METHOD 10/30/2024 10:14 AM [facility] Lymphocytes Absolute 1.79 1.00 - 5.00 K/mcL LAB HEMETOLOGY METHOD 10/30/2024 10:14 AM [facility] Monocytes Absolute 0.41 0.20 - 1.00 K/mcL LAB HEMETOLOGY METHOD 10/30/2024 10:14 AM [facility] Eosinophils Absolute 0.25 0.00 - 0.50 K/mcL LAB HEMETOLOGY METHOD 10/30/2024 10:14 AM EST [facility] Basophils Absolute 0.06 0.00 - 0.20 K/[facility] LAB HEMETOLOGY METHOD 10/30/2024 10:14 AM EST [facility] Immature Granulocytes Absolute 0.02 0.00 - 0.03 K/[facility] LAB HEMETOLOGY METHOD 10/30/2024 10:14 AM EST [facility] Blood Venous blood specimen / Unknown Venipuncture / Unknown 10/30/2024 7:45 AM EST 10/30/2024 7:45 AM EST us Lexii TAVERAS LAB BLOOD ORDERABLES Final Re sult Performing Organization Address [facility]/ZIP Co de Phone Number [facility] [address] [place] [address], * (ABNORMAL) Microalbumin creatinine urine ratio (10/30/2024 7:45 AM EST) Creatinine, Urine 222.0 mg/dL LAB CHEMISTRY METHOD 10/30/2024 10:37 AM EST [facility] Microalb, Ur 54.7(H) 0.0 - 29.0 mg/L LAB CHEMISTRY METHOD 10/30/2024 10:37 AM EST [facility] Microalb/Crea t Ratio 25 <30 mg/g creat LAB CHEMISTRY METHOD 10/30/2024 10:37 AM EST [facility] Urine Urine specimen obtained by clean catch procedure / Unknown Non-blood Collection / Unknown 10/30/2024 7:45 AM EST 10/30/2024 7:45 AM EST us Lexii TAVERAS LAB URINE ORDERABLES Final Re sult Performing Organization Address [facility]/ZIP Co de Phone Number [facility] [address] [place] [address], [place] [phone] * (ABNORMAL) Hemoglobin A1c (10/30/2024 7:45 AM EST) [facility] Hemoglobin A1C 7.9(H) <6.5 % LAB CHEMISTRY METHOD 10/30/2024 12:26 PM EST [facility] Mean Bld Glu Estim. 180 mg/dL LAB CHEMISTRY METHOD 10/30/2024 12:26 PM EST [facility] Blood Venous blood specimen / Unknown Venipuncture / Unknown 10/30/2024 7:45 AM EST 10/30/2024 7:45 AM EST Lexii TAVERAS LAB BLOOD ORDERABLES Final Re sult [facility] [address] [place] [address], * Annual BMP Blood Test (04/08/2024) [facility] Annual BMP Blood Test abstracted [facility] Provider HEALTH MAINTENANCE Final Result * (ABNORMAL) Lipid panel (04/08/2024) [facility] LDL/HDL Ratio 3 0 - 4 Triglycerides 109 0 - 150 mg/dL Cholesterol 120 0 - 200 mg/dL HDL 39(A) >=40 mg/dL LDL Cholesterol 60 0 - 100 mg/dL Blood Venous blood specimen / Unknown [facility] Provider LAB BLOOD ORDERABLES Vanita l Result * Diabetes Eye Exam (02/17/2024) [facility] Diabetes: Annual Retina Eye Exam abstracted [facility] Provider HEALTH MAINTENANCE Final Result * Diabetes Foot Exam (01/16/2024) [facility] Diabetes: Annual Foot Exam abstracted [facility] Provider HEALTH MAINTENANCE Final Result * Colonoscopy (03/28/2022) [facility] Colonoscopy no interpretation , abstracted Anatomical Region Laterality Modality Other Historical Provider HEALTH MAINTENANCE Final Result * Hepatitis C Screening (07/15/2013) Pathologist [facility] Hepatitis C Screening abstracted Historical Provider HEALTH MAINTENANCE Final Result from Last 3 Months or Most Recently Relevant to Health Maintenance Insurance MEDICARE Care Teams Storeroom Supervisor Relationship Specialty Start Date End Date Loren Sanz MD [address] [place] [address] PCP - General 05/04/1991
--- OUTSIDE RECORDS SUMMARY | 2025-01-21 17:12 | XMS_ITS | Encounter Summary ---
Author Organization [facility] Address [address] [place] [address] Care Team Providers Care Software Development Project Manager Name Role Phone Loren Sanz MD Primary Care Provider [phone] Reason for Referral * Imaging (Routine) - Closed Specialty Diagnoses / Procedures Referred By Contac t Referred To Contact Radiology Diagnoses Encounter for screening for malignant neoplasm of respiratory organs Nicotine dependence, cigarettes, uncomplicated Procedures CT Lung Screening Ludivina Presley MD [address] [address] Phone: tel: fax: [address] [address] Phone: tel: Referral ID Status Reason Start Date Expiration Date Visits Re quested Visits Authorized [id number] Closed 12/03/2024 12/03/2025 1 1 Reason for Visit * Imaging (Routine) - Closed Specialty Diagnoses / Procedures Referred By Contac t Referred To Contact Radiology Diagnoses Encounter for screening for malignant neoplasm of respiratory organs Nicotine dependence, cigarettes, uncomplicated Procedures CT Lung Screening Ludivina Presley MD [address] [address] Phone: tel: fax: [address] [address] Phone: tel: Referral ID Status Reason Start Date Expiration Date Visits Re quested Visits Authorized [id number] Closed 12/03/2024 12/03/2025 1 1 Encounter Details Date Type Department Care Team (Latest Contact Info) Description 01/06/2025 3:38 PM EST - 01/06/2025 11:59 PM EST Hospital Encounter [facility] CT Scan [address] [place] [address] Encounter for screening for malignant [...] for your loved ones. For example, director maternal child or elderly care for an older adult? [...] 81 mg EC tablet 1 TABLET DAILY blood sugar diagnostic (FreeStyle Lite Strips) test strip TO MEASURE FASTING BLOOD GLUCOSE EVERY MORNING 100 strip 1 10/14/2024 dulaglutide (TRULICITY) 3 mg/0.5 mL pen injector injectionIndication s:DM (diabetes mellitus), type 2 with peripheral vascular complications (CMS/HCC),Type 2 diabetes mellitus with diabetic microalbuminuria, without long-term current use of insulin ([facility]) Inject 0.5 mL (3 mg total) under the skin every 7 (seven) days. 6 mL 11/03/2024 FREESTYLE LANCETS [facility] Use to check blood sugar twice a day 04/13/2024 glipiZIDE (GLUCOTROL) 10 mg tablet Take 1 tablet (10 mg total) by mouth 1 (one) time each day. 90 each 1 12/16/2024 sildenafiL (VIAGRA) 50 mg tablet TAKE ONE TABLET BY MOUTH ONE HOUR PRIOR TO NEED 06/17/2023 valsartan (DIOVAN) 40 mg tablet Take 1 tablet (40 mg total) by mouth 1 (one) time each day. 90 tablet 1 12/16/2024 atorvastatin (LIPITOR) 40 mg tablet Take 1 tablet (40 mg total) by mouth at bedtime. 90 tablet 10/19/2024 hydroCHLOROthiazide (MICROZIDE) 12.5 mg capsule Take 1 capsule (12.5 mg total) by mouth at bedtime. 90 capsule 10/19/2024 documented as of this encounter Discharge Disposition Disposition Code Departure Means Destination Home or Self Care documented in this encounter Plan of Treatment Upcoming Encounters Date Type Department Care Team (Late st Contact Info) Description 03/15/2025 3:30 PM EDT Office Visit Adult Medicine [facility] [address] [place] [address] Lexii Hugo PA [address] [place] [address] documented as of this encounter Procedures Procedure [...] Signed Date: 01/11/2025 09:57 ET Workstation ID: [id number] Transcribed By: Self Edit Transcribed Date: 01/11/2025 [...] Signed Date: 01/11/2025 09:57 ET Workstation ID: [id number] Transcribed By: Self Edit Transcribed Date: 01/11/2025 09:53 ET Ludivina Presley MD IM CT PROCEDURES Final Result documented in this encounter Visit Diagnoses Diagnosis Encounter for screening for malignant neoplasm of respiratory organs Nicotine dependence, cigarettes, uncomplicated documented in this encounter Additional Health Concerns Assessment Noted Time PHQ-9 Depression Total Score: 0 12/09/19 25 12:42 PM EST documented as of this encounter Care Teams Software Development Project Manager Relationship Specialty Start Date End Date Loren Sanz MD [address] [place] [address] PCP - General 05/04/1991 documented as of this encounter
== END 2025-01-21 14:31 | disposition home or self-care (01) ==
LOC: HO.HAP 14:30
PROVIDERS: Visit Provider Internal Medicine
DX: Z46.1 Encounter for fitting and adjustment of hearing aid (principal); H90.3 Sensorineural hearing loss, bilateral
CPT/HCPCS: V5261; V5299

== ENCOUNTER 2025-02-16 10:48 | Outpatient (REF) | payer SELFPAY ==
--- OUTSIDE RECORDS SUMMARY | 2025-02-16 13:06 | XMS_ITS | Clinical Summary ---
Author Organization [address] Address [address] [place] [phone] Phone Care Team Providers Care Wood Polisher Name Role Phone Loren Sanz MD Primary Care Provider [phone] Allergies Active Allergy Reactions Criticality Noted Date [...] dulaglutide (TRULICITY) 3 mg/0.5 mL pen injector injectionIndicat ions:DM (diabetes mellitus), type 2 with peripheral vascular complications (CMS/HCC V24, CMS/HCC V28),Type 2 diabetes mellitus with diabetic microalbuminuria , without long-term current use of insulin (CMS/[facility] V24, CMS/HCC V28) Inject 0.5 mL (3 mg total) under [...] total) by mouth at bedtime. 90 tablet 01/28/20 25 Active hydroCHLOROthiaz sparkle (MICROZIDE) 12.5 mg capsule Take 1 capsule (12.5 mg total) by mouth at bedtime. 90 capsule 01/28/20 25 Active atorvastatin (LIPITOR) 40 mg tablet Take 1 tablet (40 mg total) by mouth at bedtime. 90 tablet 10/19/20 24 025 Discontinued hydroCHLOROthiaz sparkle (MICROZIDE) 12.5 mg capsule Take 1 capsule (12.5 mg total) by mouth at bedtime. 90 capsule 10/19/20 24 025 Discontinued atorvastatin (LIPITOR) 40 mg tablet Take 1 tablet (40 mg total) by mouth at bedtime. 90 tablet 01/21/20 25 025 Discontinued(R eorder) hydroCHLOROthiaz sparkle (MICROZIDE) 12.5 mg capsule Take 1 capsule (12.5 mg total) by mouth at bedtime. 90 capsule 01/21/20 25 025 Discontinued(R eorder) Active Problems Problem Noted Date Diagnosed Date AMD (age-related macular degeneration), bilatera l 02/19/2024 Overview (10/06/2024): Dr. Lee Lumbar degenerative disc disease 09/17/2019 Prostatism 10/23/2017 Overweight (BMI 25.0-29.9) 01/12/2013 DM (diabetes mellitus), type 2 with peripheral vascular complications ([facility] V24, [facility] V28) 12/25/2010 Diverticulosis of colon without hemorrhage 06/10 Overview (10/06/2024): Incidental finding at colonoscopy 06/10/2009. Erectile dysfunction 10/17/2007 Cervicalgia 07/02/2006 Microalbuminuria 05/03/2006 Type II diabetes mellitus wi th renal manifestations ([facility] V24, [facility] V28) 10/25/2005 Overview (12/13/2024): Hematuria 10/06/2005 Overview (10/06/2024): negative evaluation IMO update Hypercholesterolemia 10/06/2005 Hypertension 10/06/2005 Encounters Date Type Department Care Team Description 01/22/2025 Telephone Adult Medicine [address] [phone] Loren Sanz MD Medication Problem 01/06/2025 3:38 PM EST - 01/06/2025 11:59 PM EST Hospital Encounter [facility] CT Scan [address] [place] [address] Encounter for screening for malignant neoplasm of respiratory organs; Nicotine dependence, cigarettes, uncomplicated Discharge Disposition: Home or Self Care 12/16/2024 3:45 PM EST Office Visit Adult Medicine [address] [phone] Loren Sanz MD Type 2 diabetes mellitus with diabetic microalbuminuria, without long-term current use of insulin ([facility] V24, [facility] V28) (Primary Dx); Primary hypertension; Hypercholesterolemia 12/16/2024 Telephone Lung Screening Program - [place] 299 [facility] [address] [place] [phone] Faina Corrales [place] Appointment (1st notification) from [...] mellitus), type 2 with peripheral vascular complications (CMS/HCC V24, CMS/HCC V28) 12/25/2010 Obese 01/12/2013 Family History Medical History [...] care for your loved ones. For example, attendant children's institution or elderly care for an older adult? [...] EDT Office Visit Adult Medicine [facility] [address] [place] [address] Lexii Hugo PA [address] [place] [address] Health Maintenance Due Date Last Done Comments RSV Immunization Adult Patients (1 - Risk 60-74 years 1-dose series) [...] patient's age to complete this topic Hepatitis A Vaccines Aged Out No long er eligible [...] age to complete this topic Meningococcal B Vaccine Aged Out No l onger eligible based on patient's age to complete [...] of respiratory organs Nicotine dependence, cigarettes, uncomplicated MICROALBUMIN CREATININE URINE RATIO Routine 10/30/2024 7:45 AM EST AMD (age-related macular degeneration), bilateral Hypertension DM (diabetes mellitus), type 2 with peripheral vascular complications (CMS/HCC V24, CMS/HCC V28) Cervicalgia Erectile dysfunction Overweight (BMI 25.0-29.9) Microalbuminuria Hematuria Hypercholesterolemia HEMOGLOBIN A1C Routine 10/30/2024 7:45 AM EST AMD (age-related macular degeneration), bilateral Hypertension DM (diabetes mellitus), type 2 with peripheral vascular complications (CMS/HCC V24, CMS/HCC V28) Cervicalgia Erectile dysfunction Overweight (BMI 25.0-29.9) Microalbuminuria [...] Signed Date: 01/11/2025 09:57 ET Workstation ID: [id number] Transcribed By: Self Edit Transcribed Date: 01/11/2025 [...] Signed Date: 01/11/2025 09:57 ET Workstation ID: [id number] Transcribed By: Self Edit Transcribed Date: 01/11/2025 09:53 ET us uLdivina Presley MD [facility] CT PROCEDURES Final Result * (ABNORMAL) Microalbumin creatinine urine ratio (10/30/2024 7:45 AM EST) Creatinine, Urine 222.0 mg/dL LAB CHEMISTRY METHOD 10/30/2024 10:37 AM EST [facility] Microalb, Ur 54.7(H) 0.0 - 29.0 mg/L LAB CHEMISTRY METHOD 10/30/2024 10:37 AM EST [facility] Microalb/Crea t Ratio 25 <30 mg/g creat LAB CHEMISTRY METHOD 10/30/2024 10:37 AM EST [facility] Urine Urine specimen obtained by clean catch procedure / Unknown Non-blood Collection / Unknown 10/30/2024 7:45 AM EST 10/30/2024 7:45 AM EST us Lexii TAVERAS LAB URINE ORDERABLES Final Re sult Performing Organization Address City/[facility]/ZIP Co de Phone Number [facility] [address] [place] [address], [place] [phone] * (ABNORMAL) Hemoglobin A1c (10/30/2024 7:45 AM EST) [facility] Hemoglobin A1C 7.9(H) <6.5 % LAB CHEMISTRY METHOD 10/30/2024 12:26 PM EST [facility] Mean Bld Glu Estim. 180 mg/dL LAB CHEMISTRY METHOD 10/30/2024 12:26 PM EST [facility] Blood Venous blood specimen / Unknown Venipuncture / Unknown 10/30/2024 7:45 AM EST 10/30/2024 7:45 AM EST us Lexii TAVERAS LAB BLOOD ORDERABLES Final Re sult Performing Organization Address City/[facility]/ZIP Co de Phone Number [facility] [address] [place] [address], [place] [phone] * Annual BMP Blood Test (04/08/2024) Pathologist [facility] Annual BMP Blood Test abstracted Historical Provider HEALTH MAINTENANCE Final Result * (ABNORMAL) Lipid panel (04/08/2024) [facility] LDL/HDL Ratio 3 0 - 4 Triglycerides 109 0 - 150 mg/dL Cholesterol 120 0 - 200 mg/dL HDL 39(A) >=40 mg/dL LDL Cholesterol 60 0 - 100 mg/dL Blood Venous blood specimen / Unknown Historical Provider LAB BLOOD ORDERABLES Vanita l Result * Diabetes Eye Exam (02/17/2024) [facility] Diabetes: Annual Retina Eye Exam abstracted Historical Provider HEALTH MAINTENANCE Final Result * Diabetes Foot Exam (01/16/2024) [facility] Diabetes: Annual Foot Exam abstracted Result [facility] Provider HEALTH MAINTENANCE Final Result * Colonoscopy (03/28/2022) [facility] Colonoscopy no interpretation , abstracted Anatomical Region Laterality Modality Other Result [facility] Provider HEALTH MAINTENANCE Final Result * Hepatitis C Screening (07/15/2013) [facility] Hepatitis C Screening abstracted [facility] Provider HEALTH MAINTENANCE Final Result from Last 3 Months or Most Recently Relevant to Health Maintenance Insurance MEDICARE Care Teams Wood Polisher Relationship Specialty Start Date End Date Loren Sanz MD [address] [place] [address] PCP - General 05/04/1991
== END 2025-02-16 10:49 | disposition home or self-care (01) ==
LOC: HO.HAP 10:48
PROVIDERS: Visit Provider Internal Medicine
DX: Z13.89 Encounter for screening for other disorder (principal)

== ENCOUNTER 2025-08-18 09:25 | Outpatient (REF) | payer SELFPAY ==
--- OUTSIDE RECORDS SUMMARY | 2025-08-18 10:41 | XMS_ITS | Clinical Summary ---
Author Organization [address] Address [address] [place] [phone] Phone Care Team Providers Care Parachute Packer Name Role Phone Loren Sanz MD Primary Care Provider [phone] Allergies Active Allergy Reactions Criticality Noted Date Comments Amoxicillin 01/12/2013 Lip swelling, rash Lisinopril 01/24/2011 Lip swelling, rash Metformin 01/24/2011 Lip swelling, rash Penicillins 06/23/2020 Tamsulosin Hcl 01/12/2013 Face swelling, lightheaded Medications aspirin 81 mg EC tablet 1 TABLET DAILY Activ e FREESTYLE LANCETS MISC Use to check blood sugar twice a day 4 Active sildenafiL (VIAGRA) 50 mg tablet TAKE ONE TABLET BY MOUTH ONE HOUR PRIOR TO NEED 3 Active albuterol HFA (PROAIR HFA ; PROVENTIL HFA ; VENTOLIN HFA) 90 mcg/actuation inhaler Inhale 2 puffs by mouth every 4 (four) hours if needed for wheezing or shortness of breath. 1 each 4 Active atorvastatin (LIPITOR) 40 mg tablet Take 1 tablet (40 mg total) by mouth at bedtime. 90 tablet 5 12/12/19 26 Active valsartan (DIOVAN) 40 mg tablet Take 1 tablet (40 mg total) by mouth 1 (one) time each day. 90 tablet 1 5 Active hydroCHLOROthia zide (MICROZIDE) 12.5 mg capsule Take 1 capsule (12.5 mg total) by mouth at bedtime. 90 capsule 1 Active glipiZIDE (GLUCOTROL) 10 mg tablet Take 1 tablet (10 mg total) by mouth 2 (two) times a day before meals. 180 each 1 5 Active blood sugar diagnostic (FreeStyle Lite Strips) test strip Use as instructed twice daily 200 strip 1 Active insulin glargine (Lantus Solostar U-100 Insulin) 100 unit/mL (3 mL) injection pen Inject 10 Units under the skin at bedtime. 15 mL 1 5 Active pen needle, diabetic 29 gauge x 1/2 needle Inject under the skin at bedtime. 100 each 1 5 Active Active Problems Problem Noted Date Diagnosed Date AMD (age-related macular degeneration), bilatera l 02/19/2024 Overview (10/06/2024): Dr. Lee Lumbar degenerative disc disease 09/17/2019 Prostatism 10/23/2017 Overweight (BMI 25.0-29.9) 01/12/2013 DM (diabetes mellitus), type 2 with peripheral vascular complications ([facility] V24, [facility] V28) 12/25/2010 Diverticulosis of colon without hemorrhage 06/10 Overview (10/06/2024): Incidental finding at colonoscopy 06/10/2009. Erectile dysfunction 10/17/2007 Cervicalgia 07/02/2006 Microalbuminuria 05/03/2006 Assessment & Plan (06/17/2025 2:28 PM EDT): Type II diabetes mellitus wi th renal manifestations (CMS/[facility] V24, [facility] V28) 10/25/2005 Overview (12/13/2024): Assessment & Plan (06/17/2025 2:28 PM EDT): Orders: Microalbumin creatinine urine ratio; Future Hematuria 10/06/2005 Overview (10/06/2024): negative evaluation IMO update Hypercholesterolemia 10/06/2005 Assessment & Plan (06/17/2025 2:28 PM EDT): Orders: Lipid panel with reflex to direct LDL; Future Hypertension 10/06/2005 Assessment & Plan (06/17/2025 2:28 PM EDT): Orders: Comprehensive metabolic panel; Future Encounters Date Type Department Care Team Description 08/04/2025 Telephone Adult Medicine [address] [id number] Loren Sanz MD 06/17/2025 2:15 PM EDT Office Visit Adult Medicine [address] [phone] Loren Sanz MD Encounter for annual wellness visit (AWV) in Medicare patient (Primary Dx); Primary hypertension; Type 2 diabetes mellitus with diabetic microalbuminuria, with long-term current use of insulin ([facility] V24, [facility] V28); Hypercholesterolemia; Microalbuminuria from Last 3 Months Immunizations Immunization Administration Dates Next Due Influenza trivalent, 0.5mL [...] Comments CHOLECYSTECTOMY VASECTOMY COLONOSCOPY 03/11/2006 [place] [facility] 3 polyps, 2 hyperplastic, one tubular adenoma. [...] colonic polyps 12/11/2006 CN 03/11/2006 Dr. [place]iel, [facility] 3 polyps, 1 tubular adenoma, 2 hyperplastic. Diverticulosis of colon (wit hout mention of hemorrhage) 06/10/2009 Essential hypertension, benign 10/06/2005 Amblyopia, unspecified right DM (diabetes mellitus), type 2 with peripheral vascular complications ([facility] V24, [facility] V28) 12/25/2010 Obese 01/12/2013 Family History Medical [...] you may not have stable housing? No 06/17/2025 Food Access & Nutrition Answer Date Rec orded Do you have access to a vari ety of food including fruits and vegetables? No 06/17/2025 Access to Healthcare Answer Date Record ed Within the last 3 months, ho w many times did you visit the emergency department for your medical care? 0 06/17/2025 Health Literacy Answer Date Recorded How often do you need to hav e someone help you when you read instructions, pamphlets, or other written material from your doctor or pharmacy? Never 06/17/2025 Caregiver: How often do you need to have someone help you when you read instructions, pamphlets, or other written material from your doctor or pharmacy? Not on file 06/17/2025 Financial Risk Answer Date Recorded How hard is it for you to pa y for the very basics like food, housing, medical care, and air conditioning / heating? Not very hard 06/17/2025 Transportation Answer Date Recorded Has the lack of transportati on kept you from meetings, work, or from getting things needed for daily living? No Has the lack of transportati on kept you from medical appointments or from getting medications? No 06/17/2025 Social Isolation Answer Date Recorded How often do you feel lonely or isolated from th ose around you? Never 06/17/2025 Food Risk Answer Date Recorded Within the past 12 months we worried whether our food would run out before we got money to buy more. Never true 06/17/2025 Within the past 12 months th e food we bought just didn't last and we didn't have money to get more. Never true 06/17/2025 Dependent Care Answer Date Recorded Do you need help finding or paying for care for your loved ones. For example, children's librarian or elderly care for an older adult? No 06/17/2025 Education Answer Date Recorded Do you think completing more education or training, like finishing a GED, going to college, or learning a trade, would be helpful for you? N/A 06/17/2025 Employment and Income Answer Date Recor ded During the last four weeks, have you been actively looking for work? No 06/17/2025 Living Situation Answer Date Recorded What is your living situation? Unrecognized valu e 06/17/2025 Sex and Gender Information Value Date Recorded Sex Assigned at Male 01/05/2025 8:54 AM EST Legal Sex Male 9:30 PM EST Gender Identity Male 01/05/2025 8:54 AM EST Sexual Orientation Not on file Obstetrics History Last Filed Vital Signs Vital Sign Reading Time Taken Comments Blood Pressure 112/58 06/17/2025 2:07 PM EDT Pulse 79 06/17/2025 2:07 PM EDT Temperature 36.6 C (97.8 F) 06/17/2025 2:07 PM EDT Respiratory Rate 16 06/17/2025 2:07 PM EDT Oxygen Saturation 96% 06/17/2025 2:07 PM EDT Inhaled Oxygen Concentration - - Weight 86.8 kg (191 lb 4.8 oz) 06/17/2025 2:07 P M EDT Height 182.9 cm (6') 06/17/2025 2:07 PM EDT Body Mass Index 25.94 06/17/2025 2:07 PM EDT Plan of Treatment Upcoming Encounters Date Type Department Care Team (Late st Contact Info) Description 10/18/2025 3:00 PM EST Office Visit Adult Medicine [facility] [address] [place] [phone] Lexii Hugo PA [address] [place] [phone] Health Maintenance Due Date Last Done Comments RSV Immunization Adult Patients (1 - Risk 50-74 years 1-dose series) 2005 Zoster Vaccines (2 of 3) 08/08/2016 06/13/2016 Abdominal Aortic Aneurysm (AAA) Screen 10/13/2022 Diabetes: Annual Foot Exam 01/15/2025 01/16/2024 Diabetes: Annual Retina Eye Exam 02/16/2025 02/17/2024 Diabetes: Annual GFR (Glomerular Filtration Rate) 04/08/2025 04/08/2024, 04/08/2024 Hypertension/CHF/CAD Annual BMP Blood Test 04/08/2025 04/08/2024, 04/08/2024 COVID-19 Vaccine ( season) 2025 Influenza Vaccine (#1) 2025 , 08/25/2023, 09/17/2022, Additional history exists Diabetes: Annual Urine Albumin-Creatinine Ratio (uACR) 10/30/2025 10/30/2024, 04/08/2024 Diabetes: Blood Sugar Control Test (HGBA1C) 12/15/2025 06/14/2025, 03/11/2025, 10/30/2024, Additional history exists Lung Cancer Screening (Low Dose CT) 01/06/2026 01/06/2025, 01/02/2024, 01/02/2023 Falls Risk Assessment 06/17/2026 06/17/2025 Medicare Annual Wellness Visit 06/17/2026 06/17/2025, 04/13/2024 Social Influencers of Health Screening 06/17/2026 06/17/2025 Colorectal Cancer Screening: Colonoscopy 03/28/2027 03/28/2022 DTaP,Tdap,and Td Vaccines (4 - Td or Tdap) 02/23/2029 02/23/2019, 12/28/2008, 03/04/1999 Cholesterol Screening (Lipid Panel) 04/08/2029 04/08/2024, 04/08/2024 Hepatitis C Screening Completed 07/15/2013 Pneumococcal Vaccine: 50+ Years Completed 10/03/2024, 09/17/2022, 04/12/2021, Additional history exists Depression Screening Completed 06/17/2025 HIB Vaccines Aged Out No longer eligi [...] Procedure Name Priority Date/Time Associated Diagnosis Comments HEMOGLOBIN A1C Routine 06/14/2025 7:34 AM EDT Type 2 diabetes mellitus with diabetic microalbuminuria, with long-term current use of insulin ([facility] V24, [facility] V28) DM (diabetes mellitus), type 2 with peripheral vascular complications ([facility] V24, [facility] V28) CT LUNG SCREENING Routine 01/06/2025 3:5 5 PM EST Encounter for screening for malignant neoplasm of respiratory organs Nicotine dependence, cigarettes, uncomplicated MICROALBUMIN CREATININE URINE RATIO Routine 10/30/2024 7:45 AM EST AMD (age-related macular degeneration), bilateral Hypertension DM (diabetes mellitus), type 2 with peripheral vascular complications ([facility] V24, [facility] V28) Cervicalgia Erectile dysfunction Overweight (BMI 25.0-29.9) Microalbuminuria Hematuria Hypercholesterolemia ANNUAL BMP BLOOD TEST Routine 04/08/2024 LIPID PANEL Routine 04/08/2024 DIABETES EYE EXAM Routine 02/17/2024 DIABETES FOOT EXAM Routine 01/16/2024 COLONOSCOPY Routine 03/28/2022 HEPATITIS C SCREENING Routine 07/15/2013 from Last 3 Months or Most Recently Relevant to Health Maintenance Results * (ABNORMAL) Hemoglobin A1c (06/14/2025 7:34 AM EDT) Hemoglobin A1C 7.1(H) <6.5 % LAB CHEMISTRY METHOD 06/14/2025 11:23 AM T [facility] Mean Bld Glu Estim. 157 mg/dL LAB CHEMISTRY METHOD 06/14/2025 11:23 AM T [facility] Blood Venous blood specimen / Unknown Venipuncture / Unknown 06/14/2025 7:34 AM EDT 06/14/2025 7:34 AM EDT Lexii TAVERAS LAB BLOOD ORDERABLES Final Re sult [facility] [address] [place] [address], * CT Lung Screening (01/06/2025 3:55 PM EST) Anatomical Region Laterality Modality Chest Computed Tomogra phy 01/11/2025 9:53 AM EDT Impressions 01/11/2025 9:57 AM EDT No suspicious pulmonary nodules. Lung RADS 2-benign. Recommend continued screening with low-dose chest CT in 12 months.. -------- FINAL REPORT -------- Dictated By: DEDE DAVISON Dictated Date: 01/11/2025 09:53 ET Assigned Physician: DEDE DAVISON Reviewed and Electronically Signed By: DEDE DAVISON Signed Date: 01/11/2025 09:57 ET Workstation ID: [id number] Transcribed By: Self Edit Transcribed Date: 01/11/2025 09:53 ET Narrative 01/11/2025 9:57 AM EDT PROCEDURE: Chest CT INDICATION: Lung cancer screening, current smoker, 26 pack smoking history TECHNIQUE: Chest CT without contrast. Multi planar reformats were created and interpreted. The examination was performed utilizing dose reduction techniques. Total DLP 176 COMPARISON: 01/01/2024 FINDINGS: LUNGS/PLEURA: Central airways are patent. Mild emphysema with chronic bronchitis. Elevated right diaphragm with right basilar atelectasis. Sub-3 mm centrilobular nodularity seen in the left lower lobe, likely inflammatory. Scattered calcified granulomas throughout the lungs. 3 mm subpleural nodule in the right lower lobe is stable No new or suspicious pulmonary nodules. No pleural effusion or pneumothorax. MEDIASTINUM: Thyroid gland is normal. No mediastinal or hilar lymphadenopathy. Esophagus is normal. Severe coronary artery calcifications. Cardiac chambers are normal in size. No pericardial effusion. Aortic valvular calcifications. CHEST WALL: No axillary [...] Signed Date: 01/11/2025 09:57 ET Workstation ID: [id number] Transcribed By: Self Edit Transcribed Date: 01/11/2025 09:53 ET us Ludivina Presley MD [facility] [place] PROCEDURES Final Result * (ABNORMAL) Microalbumin [...] 10/30/2024 7:45 AM EST Lexii TAVERAS LAB URINE ORDERABLES Final Re sult [facility] [address] [place] [address], [place] [phone] * Annual BMP Blood Test (04/08/2024) [facility] Annual BMP Blood Test abstracted [facility] Provider HEALTH MAINTENANCE Final Result * (ABNORMAL) Lipid panel (04/08/2024) [facility] LDL/HDL Ratio 3 0 - 4 Triglycerides 109 0 - 150 mg/dL Cholesterol 120 0 - 200 mg/dL HDL 39(A) >=40 mg/dL LDL Cholesterol 60 0 - 100 mg/dL Blood Venous blood specimen / Unknown Result [facility] Provider LAB BLOOD ORDERABLES Vanita l Result * Diabetes Eye Exam (02/17/2024) [facility] Diabetes: Annual Retina Eye Exam abstracted Historical Provider HEALTH MAINTENANCE Final Result * Diabetes Foot Exam (01/16/2024) [facility] Diabetes: Annual Foot Exam abstracted [facility] Provider HEALTH MAINTENANCE Final Result * Colonoscopy (03/28/2022) [facility] Colonoscopy no interpretation , abstracted Anatomical Region Laterality Modality Other Historical Provider HEALTH MAINTENANCE Final Result * Hepatitis C Screening (07/15/2013) Hepatitis C Screening abstracted us Historical Provider HEALTH MAINTENANCE Final Result from Last 3 Months or Most Recently Relevant to Health Maintenance Insurance MEDICARE Care Teams Parachute Packer Relationship Specialty Start Date End Date Loren Sanz MD [address] [place] [phone] PCP - General 05/04/1991
== END 2025-08-18 09:26 | disposition home or self-care (01) ==
LOC: HO.HAP 09:25
PROVIDERS: Visit Provider Internal Medicine
DX: Z46.1 Encounter for fitting and adjustment of hearing aid (principal); H90.3 Sensorineural hearing loss, bilateral
CPT/HCPCS: 92593